=== PATIENT | male | born 1965 | race Caucasian/White ===

== ENCOUNTER 2021-11-15 12:36 | Emergency (ER) | payer BC ==
[2021-11-15] MEDS ORDERED: Lidocaine 1% 10 ML MDV INJECT ONE (13:23)
[2021-11-15] MEDS ORDERED: Bacitracin Oint 1 GM U/D Packet TOP ONE (13:24)
== END 2021-11-15 13:48 | disposition home or self-care (01) ==
LOC: JP.ED 12:36
DX: S60.451A Superficial foreign body of left index finger, initial encounter (principal); I25.10 Atherosclerotic heart disease of native coronary artery without angina pectoris; I10 Essential (primary) hypertension; W45.8XXA Other foreign body or object entering through skin, initial encounter
CPT/HCPCS: 99281; 99283